=== PATIENT | male | born 1970 | race Two or more races ===

== ENCOUNTER 2017-09-07 14:25 | Emergency (ER) | payer SELFPAY ==
--- NOTE | 2017-09-07 15:01 | EDM.PDOC ---
ED HPI GENERAL MEDICAL PROBLEM - General Chief Complaint: Lower Extremity Injury/Pain Stated Complaint: LEFT FOOT INGROWN TOENAIL Time Seen by Provider: 09/07/17 14:37 Source of Information: Reports: Patient, Family, Training Professional - History of Present Illness INITIAL COMMENTS - FREE TEXT/NARRATIVE: HISTORY AND PHYSICAL: History of present illness: [Alex is a 47-year-old male here for left toe pain 5 days. He states that yesterday his toe "exploded" with blood. He states there was some yellow drainage. He denies any injury. Denies fevers or chills. He is not taking anything for the pain. No history of diabetes.] Review of systems: As per history of present illness and below otherwise all systems reviewed and negative. Past medical history: As per history of present illness and as reviewed below otherwise noncontributory. Surgical history: As per history of present illness and as reviewed below otherwise noncontributory. Social history: No reported history of drug or alcohol abuse. Family history: As per history of present illness and as reviewed below otherwise noncontributory. Physical exam: HEENT: Atraumatic, normocephalic, pupils reactive, negative for conjunctival pallor or scleral icterus. Lungs: Clear to auscultation, breath sounds equal bilaterally, chest nontender. Heart: S1S2, regular, negative for clicks, rubs, or JVD. Genitourinary: Deferred. Rectal: Deferred. Extremities: Ingrown toenail at the medial side of the left great toe. It is slightly erythematous and tender to touch. Dried purulent drainage noted. No warmth. Atraumatic, negative for cords or calf pain. Neurovascular unremarkable. Neuro: Awake, alert, oriented. Cranial nerves II through XII unremarkable. Cerebellum unremarkable. Motor and sensory unremarkable throughout. Exam nonfocal. Notes: Diagnostics: [] Therapeutics: [Bactrim ] Impression: [Infected ingrown toenail] Plan: [#1 take antibiotic as directed #2 soak your foot in warm water with mild soap 2-3 times daily as discussed #3 follow up with podiatry #4 return to ED if signs of worsening infection as needed as discussed ] Definitive disposition and diagnosis as appropriate pending reevaluation and review of above. Onset: Today Left 2-Long toe Pain Score (Numeric/FACES): 8 - Related Data Allergies Allergy/AdvReac Type Severity Reaction Status Date / Time Penicillins Allergy Itching Verified 09/07/17 14:46 Home Meds: Home Meds . [No Known Home Meds] 09/07/17 [History] Sulfamethoxazole/Trimethoprim [Bactrim Ds Tablet] 1 each PO BID 7 Days #14 tablet 09/07/17 [Rx] Past Medical History - Past Health History Medical/Surgical History: Denies Medical/Surgical History - Infectious Disease History Infectious Disease History: Reports: None Social & Family History - Tobacco Use Smoking Status *Q: Never Smoker - Caffeine Use Caffeine Use: Reports: Coffee - Recreational Drug Use Recreational Drug Use: No Review of Systems - Review of Systems Review Of Systems: ROS reveals no pertinent complaints other than HPI. ED EXAM, GENERAL - Physical Exam Exam: See Below (see dictation) Course - Vital Signs Last Recorded V/S: Last Vital Signs Temp 36.1 C 09/07/17 14:46 Pulse 78 09/07/17 14:46 Resp 16 09/07/17 14:46 BP 124/74 09/07/17 14:46 Pulse Ox 97 09/07/17 14:46 Departure - Departure Time of Disposition: 15:01 Disposition: Home, Self-Care 01 Condition: Good Clinical Impression: Ingrown toenail of left foot with infection - Discharge Information Prescriptions: Sulfamethoxazole/Trimethoprim [Bactrim Ds Tablet] 1 each PO BID 7 Days #14 tablet Referrals: PCP,None [Primary Care Provider] - Forms: ED Department Discharge Additional Instructions: The following information is given to patients seen in the emergency department who are being discharged to home. This information is to outline your options for follow-up care. We provide all patients seen in our emergency department with a follow-up referral. The need for follow-up, as well as the timing and circumstances, are variable depending upon the specifics of your emergency department visit. If you don't have a primary care physician on staff, we will provide you with a referral. We always advise you to contact your personal physician following an emergency department visit to inform them of the circumstance of the visit and for follow-up with them and/or the need for any referrals to a consulting specialist. The emergency department will also refer you to a specialist when appropriate. This referral assures that you have the opportunity for follow-up care with a specialist. All of these measure are taken in an effort to provide you with optimal care, which includes your follow-up. Under all circumstances we always encourage you to contact your private physician who remains a resource for coordinating your care. When calling for follow-up care, please make the office aware that this follow-up is from your recent emergency room visit. If for any reason you are refused follow-up, please contact the [facility] Emergency Department at and asked to speak to the emergency department charge nurse. [facility] Primary Care/Podiatry [address] [place] [phone] #1 take antibiotic as directed #2 soak your foot in warm water with mild soap 2-3 times daily as discussed #3 follow up with podiatry #4 return to ED if signs of worsening infection as needed as discussed
== END 2017-09-07 15:25 | disposition home or self-care (01) ==
LOC: MW.ED 14:25
DX: L60.0 Ingrowing nail (principal); L03.032 Cellulitis of left toe; Z88.0 Allergy status to penicillin
CPT/HCPCS: 99283